=== PATIENT | female | born 1960 | race Caucasian/White ===

== ENCOUNTER → 2017-01-02 | Outpatient (REF) | payer OTHER | LOC: M LAB REF 12:25 | PROVIDERS: ATTEND Physician Assistant Medical | DX: J02.9 Acute pharyngitis, unspecified (principal) ==

== ENCOUNTER → 2017-06-01 | Outpatient (REF) | payer OTHER ==
[2017-06-01 11:33] LABS: YEAST LIKE CELL URINE AUTO SMALL
== END ==
LOC: M LAB REF 09:29
PROVIDERS: ATTEND Internal Medicine
DX: R30.0 Dysuria (principal)

== ENCOUNTER → 2017-11-16 | Outpatient (CLI) | payer BC, OTHER | LOC: M WUC 14:28 | DX: J20.9 Acute bronchitis, unspecified (principal) | CPT/HCPCS: 71046 ==

== ENCOUNTER → 2018-06-02 | Outpatient (CLI) | payer BC, OTHER | LOC: M SMT 14:54 | DX: R06.02 Shortness of breath (principal) | CPT/HCPCS: 71046 ==

== ENCOUNTER → 2018-07-21 | Outpatient (CLI) | payer BC, OTHER ==
[2018-07-21 13:25] LABS: BASO % 0.4 % (0.0-1.0); EOS # 0.3 10^3/uL (0.0-0.50); EOS % 3.7 % (0.0-3.0); HEMATOCRIT 42.5 % (36.0-47.0); IMMATURE GRANULOCYTE % 0.3 % (0-3.0); LYMPH # 1.7 10^3/uL (1.5-4.5); LYMPH % 23.9 % (24.0-44.0); MEAN CORPUSCULAR HEMOGLOBIN 30.7 pg (27.0-33.0); MEAN CORPUSCULAR HGB CONC 32.9 g/dl (32.0-36.5); MEAN CORPUSCULAR VOLUME 93.2 fl (80.0-96.0); MONO # 0.9 10^3/uL (0.0-0.8); MONO % 13.1 % (0.0-5.0); NEUTROPHILS # 4.1 10^3/uL (1.8-7.7); NEUTROPHILS % 58.6 % (36.0-66.0); PLATELET COUNT, AUTOMATED 358 10^3/uL (150-450); RED BLOOD COUNT 4.56 10^6/uL (4.00-5.40); RED CELL DISTRIBUTION WIDTH 13.9 % (11.5-14.5)
[2018-07-23 00:08] LABS: Lyme Disease IgG/IgM Antibodie <0.91 ISR (0.00-0.90); Lyme Disease IgM Ab Quantitati <0.80 index (0.00-0.79)
== END ==
LOC: M LABDRWAD 09:12
DX: M79.672 Pain in left foot (principal); R20.9 Unspecified disturbances of skin sensation
CPT/HCPCS: 85025

== ENCOUNTER → 2018-07-21 | Outpatient (CLI) | payer BC, OTHER | LOC: M ADAMS 09:07 | DX: M79.672 Pain in left foot (principal); R20.9 Unspecified disturbances of skin sensation | CPT/HCPCS: 72100 ==

== ENCOUNTER → 2020-05-22 | Outpatient (REF) | payer OTHER | LOC: M SFHCWAGY 15:15 | PROVIDERS: ATTEND Nurse Practitioner Women's Health | DX: Z12.72 Encounter for screening for malignant neoplasm of vagina (principal); N95.2 Postmenopausal atrophic vaginitis | CPT/HCPCS: 87624; G0123 ==

== ENCOUNTER → 2020-11-20 | Outpatient (CLI) | payer BC, OTHER ==
--- NOTE | 2020-11-20 14:37 | REP ---
INDICATION: PERF OF TYMPANIC MEMBRANE. COMPARISON: Comparison CT study is from January 11, 2016.. TECHNIQUE: Helical scanning is acquired and 1 mm axial images re-formatted. Bone targeted high-resolution zones axial and coronal scans of both internal auditory canals and petrous bones are provided. FINDINGS: There is mild mucosal thickening affecting the right maxillary sinus. This is a little more prominent than on the prior study. There are some opacified fluid-filled mastoid air cells on the right. This is new compared to the prior study. The left mastoid sinus is clear. No other paranasal sinus opacification is appreciated. No intraorbital or intracranial abnormality is seen. Vascular calcification is noted in the distal internal carotid arteries bilaterally. Middle ear cavities are pneumatized bilaterally. the right tympanic membrane appears somewhat retracted. No definite abnormal soft tissue density is seen within the middle ear cavity on either side. No erosive changes are seen in the scutum or in the ossicles on either side. Internal auditory canals are normal and symmetric. Cochlear and vestibular apparatus appear intact. IMPRESSION: Partially retracted right tympanic membrane. Right mastoiditis changes with partially opacified mastoid air cells seen today. There is mild mucosal thickening in the right maxillary sinus as well. Vascular calcification is noted. <Electronically signed by Nico Denise > 11/20/20 [id number]
== END ==
LOC: M RAD 13:56
PROVIDERS: ATTEND Otolaryngology
DX: H72.2X1 Other marginal perforations of tympanic membrane, right ear (principal)

== ENCOUNTER → 2021-08-20 | Outpatient (CLI) | payer BC, OTHER ==
[2021-08-20 15:28] LABS: BLOOD UREA NITROGEN 18 MG/DL (7-18); CALCIUM LEVEL 9.5 MG/DL (8.8-10.2); CARBON DIOXIDE LEVEL 27 MEQ/L (21-32); CHLORIDE LEVEL 108 MEQ/L (98-107); CREATININE FOR GFR 0.94 MG/DL (0.55-1.30); GLOMERULAR FILTRATION RATE > 60.0 (>45); GLUCOSE, FASTING 140 MG/DL (70-100); POTASSIUM SERUM 3.7 MEQ/L (3.5-5.1); SODIUM LEVEL 141 MEQ/L (136-145)
[2021-08-20 15:39] LABS: TOTAL 25(OH) VITAMIN D 73.5 NG/ML (30.0-100.0)
== END ==
LOC: M LAB 14:41
PROVIDERS: ATTEND Internal Medicine Endocrinology, Diabetes & Metabolism
DX: E87.6 Hypokalemia (principal)

== ENCOUNTER → 2023-08-17 | Outpatient (REF) | payer OTHER | LOC: M SFHCWAGY 13:05 | PROVIDERS: ATTEND Nurse Practitioner Family | DX: Z12.72 Encounter for screening for malignant neoplasm of vagina (principal) ==

== ENCOUNTER → 2024-06-14 | Outpatient (CLI) | payer BC ==
[~2024-06-14] MED LIST: PROHANCE 279.3MG/ML 15ML VIAL ONE
== END ==
LOC: M PLAIMG 08:57
PROVIDERS: ATTEND Plastic Surgery Surgery of the Hand
DX: Z85.3 Personal history of malignant neoplasm of breast (principal); Z42.1 Encounter for breast reconstruction following mastectomy

== ENCOUNTER → 2024-08-22 | Outpatient (REF) | payer OTHER | LOC: M SFHCWAGY 15:08 | PROVIDERS: ATTEND Nurse Practitioner Family | DX: Z12.72 Encounter for screening for malignant neoplasm of vagina (principal); Z11.51 Encounter for screening for human papillomavirus (HPV); Z12.4 Encounter for screening for malignant neoplasm of cervix; Z01.419 Encounter for gynecological examination (general) (routine) without abnormal findings; Z77.9 Other contact with and (suspected) exposures hazardous to health | CPT/HCPCS: 87624; G0123 ==

== ENCOUNTER → 2025-09-06 | Outpatient (REF) | payer OTHER, BC ==
[2025-09-12 11:42] LABS: HPV APTIMA Not Detected (Not Detected)
== END ==
LOC: M SFHCWAGY 12:53
PROVIDERS: ATTEND Nurse Practitioner Family
DX: Z12.4 Encounter for screening for malignant neoplasm of cervix (principal)
CPT/HCPCS: 87624; G0123